=== PATIENT | male | born 1950 | race Caucasian/White ===

== ENCOUNTER 2022-03-23 20:00 | Outpatient (CLI) | payer MEDICARE, OTHER, SELFPAY | END 2022-03-23 20:01 | disposition home or self-care (01) | LOC: SLEEP 03-24 06:04 | PROVIDERS: PCP Family Medicine; Visit Provider Specialist | DX: G47.33 Obstructive sleep apnea (adult) (pediatric) (principal) | CPT/HCPCS: 95810 ==

== ENCOUNTER → 2023-02-20 13:45 | Outpatient (BNVA) | payer MEDICARE, OTHER, SELFPAY | PROVIDERS: PCP Family Medicine; Visit Provider Physician Assistant | DX: M19.011 Primary osteoarthritis, right shoulder | CPT/HCPCS: 99203 ==

== ENCOUNTER 2024-02-29 10:40 | Outpatient (RCR) | payer MEDICARE, OTHER, SELFPAY | END 2024-03-21 23:59 | disposition home or self-care (01) | LOC: SPT 10:40 | PROVIDERS: PCP Family Medicine; Visit Provider Family Medicine | DX: M25.562 Pain in left knee (principal) | CPT/HCPCS: 97110; 97161 ==

== ENCOUNTER 2024-03-22 06:30 | Outpatient (RCR) | payer MEDICARE, OTHER, SELFPAY | END 2024-03-28 08:45 | disposition home or self-care (01) | LOC: SPT 06:30 | PROVIDERS: PCP Family Medicine; Visit Provider Family Medicine | DX: M25.562 Pain in left knee (principal) | CPT/HCPCS: 97110 ==

== ENCOUNTER 2024-04-30 11:54 | Outpatient (CLI) | payer MEDICARE, OTHER, SELFPAY ==
--- NOTE | 2024-04-30 12:02 | MR_ITS ---
WS: [id number] MRI LEFT KNEE HISTORY: POSITIVE MONISHA TEST COMPARISON: LEFT knee 02/25/2024 Anterior cruciate ligament: Thinning and abnormal signal throughout the ACL. Some of the fibers of the ACL are still intact. There is fluid in the central portion of the ACL. Proximal ACL with high-grade tear. Posterior cruciate ligament: Intact with buckling. Medial collateral ligament: Partial tear in the mid MCL. Very tiny focal tear. Posterior lateral corner structures: Intact. Medial menisci: Blunting free edge posterior horn with intermediate signal throughout the posterior horn. Radial tear at the free edge. Lateral meniscus: Intact. Normal signal, size and shape. Extensor mechanism: Distal quadriceps tendon and patellar tendons are intact. Fluid and soft tissue: No joint effusion. No Santizo's cyst. Osseous and articular structures: Patellofemoral compartment: Slight lateral subluxation of the patella. Moderate narrowing of the lateral patellofemoral articulation. Mild diffuse chondromalacia. No fractures or marrow edema. Medial compartment: Mild narrowing of the medial compartment. Near complete loss of cartilage. Small marginal osteophytes with a small amount of edema within the marginal osteophytes. No fracture. Lateral compartment: Mild narrowing of the lateral compartment with mild thinning and fissuring of the cartilage. MR/MR knee LT wo con* [id number] IMPRESSION: 1. Abnormal ACL. Intermediate signal throughout the ACL with central fluid. Th in caliber ACL with a partial high-grade tear. Ligament appears atrophied. This may be a chronic partial tear. 2. Minimal intrasubstance tear involving the central MCL. 3. Blunting free edge posterior horn of the medial meniscus consistent with a radial tear. 4. Moderate narrowing of the lateral patellofemoral articulation with diffuse chondromalacia. 5. Mild narrowing of the medial and lateral compartments. Greater chondromalac ia in the medial compartment.
== END 2024-04-30 11:55 | disposition home or self-care (01) ==
LOC: RAD 11:58
PROVIDERS: Absent Provider Student in an Organized Health Care Education/Training Program; PCP Family Medicine; Visit Provider Family Medicine
DX: R29.898 Other symptoms and signs involving the musculoskeletal system (principal); R93.6 Abnormal findings on diagnostic imaging of limbs; S83.412A Sprain of medial collateral ligament of left knee, initial encounter; X58.XXXA Exposure to other specified factors, initial encounter; M94.262 Chondromalacia, left knee; S83.242A Other tear of medial meniscus, current injury, left knee, initial encounter; M25.762 Osteophyte, left knee
CPT/HCPCS: 73721

== ENCOUNTER → 2024-05-20 07:56 | Outpatient (BNVA) | payer MEDICARE, OTHER, SELFPAY | PROVIDERS: PCP Family Medicine; Visit Provider Student in an Organized Health Care Education/Training Program | DX: M17.12 Unilateral primary osteoarthritis, left knee (principal); S83.242A Other tear of medial meniscus, current injury, left knee, initial encounter; X58.XXXA Exposure to other specified factors, initial encounter | CPT/HCPCS: 99214 ==

== ENCOUNTER → 2024-06-10 15:04 | Outpatient (BNVA) | payer MEDICARE, OTHER, SELFPAY | PROVIDERS: PCP Family Medicine; Visit Provider Physician Assistant | DX: S83.242A Other tear of medial meniscus, current injury, left knee, initial encounter (principal); M17.12 Unilateral primary osteoarthritis, left knee; X58.XXXA Exposure to other specified factors, initial encounter; M25.561 Pain in right knee | CPT/HCPCS: 20610; 99213; J7318 ==

== ENCOUNTER → 2024-06-11 13:55 | Outpatient (BNVA) | payer MEDICARE, OTHER, SELFPAY | PROVIDERS: PCP Family Medicine; Visit Provider Physician Assistant | DX: M17.11 Unilateral primary osteoarthritis, right knee (principal); Z46.89 Encounter for fitting and adjustment of other specified devices | CPT/HCPCS: 73560; 73565 ==

== ENCOUNTER 2024-06-11 15:38 | Outpatient (CLI) | payer MEDICARE, OTHER, SELFPAY | END 2024-06-11 15:39 | disposition home or self-care (01) | LOC: SPT 15:39 | PROVIDERS: PCP Family Medicine; Visit Provider Physician Assistant | DX: Z46.89 Encounter for fitting and adjustment of other specified devices (principal); M17.11 Unilateral primary osteoarthritis, right knee | CPT/HCPCS: 20610; 97760; J7318; L1851 ==

== ENCOUNTER → 2024-12-24 07:53 | Outpatient (BNVA) | payer MEDICARE, OTHER, SELFPAY | PROVIDERS: PCP Family Medicine; Visit Provider Physician Assistant | DX: M17.11 Unilateral primary osteoarthritis, right knee (principal) | CPT/HCPCS: 99214 ==

== ENCOUNTER → 2025-02-04 11:53 | Outpatient (BNVA) | payer MEDICARE, OTHER, SELFPAY | PROVIDERS: PCP Family Medicine; Visit Provider Student in an Organized Health Care Education/Training Program | DX: Z01.818 Encounter for other preprocedural examination (principal) | CPT/HCPCS: 36415; 80053; 81001; 85025 ==

== ENCOUNTER 2025-02-17 09:02 | Outpatient (CLI) | payer MEDICARE, OTHER, SELFPAY ==
--- NOTE | 2025-02-17 09:30 | CT_ITS ---
WS: [id number] CT LEFT KNEE, NONCONTRAST [facility] TECHNIQUE: Noncontrast CT of the LEFT knee to include the LEFT hip and ankle. CLINICAL INFORMATION: surgical planning COMPARISON: None. DLP: 998.[address] scans at [facility] use at least one of these dose optimization techniques: automated exposure control; mA and/or kV adjustment per patient size (includes targeted exams where dose is matched to clinical indication); or iterative reconstruction. FINDINGS: Sigmoid diverticulosis. Prostate calcification. Moderate tricompartment arthritis LEFT knee. Small suprapatellar effusion. Hypertrophic patella. Vascular calcification. CT/CT knee LT JANEEN [id number] IMPRESSION: Images obtained for preoperative purposes.
== END 2025-02-17 09:03 | disposition home or self-care (01) ==
LOC: RAD 09:04
PROVIDERS: PCP Family Medicine; Visit Provider Student in an Organized Health Care Education/Training Program
DX: S83.242A Other tear of medial meniscus, current injury, left knee, initial encounter (principal); M17.12 Unilateral primary osteoarthritis, left knee; X58.XXXA Exposure to other specified factors, initial encounter; K57.30 Diverticulosis of large intestine without perforation or abscess without bleeding; N42.9 Disorder of prostate, unspecified; M79.4 Hypertrophy of (infrapatellar) fat pad
CPT/HCPCS: 73700